=== PATIENT | male | born 1975 | race African-American/Black ===

== ENCOUNTER → 2019-03-27 14:59 | Outpatient (CLI) | payer OTHER, SELFPAY ==
--- NOTE | 2019-03-27 15:20 | RAD_ITS ---
STUDY: X-RAY - PELVIS AND RIGHT HIP REASON FOR EXAM: Male, 43 years old. Right hip pain. TECHNIQUE: 3 views of the pelvis and hip. COMPARISON: None. FINDINGS: There is a non-specific bowel gas pattern. Normal visualized soft tissue structures. Normal bilateral iliac wings, sacroiliac joints and visualized sacrum. Normal bilateral superior and inferior pubic rami. Normal pubic symphysis. Normal bilateral ischial tuberosities. Normal visualized femoral head. Normal acetabulum. Normal hip joint. RAD/HIP, UNI W/ Pelvis 2-3 Views IMPRESSION: Normal x-ray examination of the pelvis and hip. Electronically Signed: Randall Jiménez MD at 16:14 EDT , Service support ,
--- NOTE | 2019-03-27 15:20 | RAD_ITS ---
STUDY: X-RAY - LUMBAR SPINE REASON FOR EXAM: Male, 43 years old. Back pain. TECHNIQUE: 5 view(s) of the lumbar spine were obtained. COMPARISON: None FINDINGS: Normal lumbar lordosis. There is no substantial scoliosis. There is a normal alignment of the vertebrae. Normal vertebral bodies and endplates. Normal disc space heights. The soft tissue structures are unremarkable. RAD/L/S Spine Min 4 Views IMPRESSION: No abnormality of the lumbar spine. Electronically Signed: Randall Jiménez MD at 16:29 EDT , Service support ,
== END ==
PROVIDERS: Referring Provider Internal Medicine; Visit Provider Internal Medicine
DX: M25.551 Pain in right hip (principal); M54.16 Radiculopathy, lumbar region
CPT/HCPCS: 72110; 73502

== ENCOUNTER → 2019-04-09 | Outpatient (CLI) | payer OTHER, SELFPAY ==
--- NOTE | 2019-04-09 15:39 | MRI_ITS ---
STUDY: MRI LUMBAR SPINE WITHOUT CONTRAST REASON FOR EXAM: Male, 43 years old. Posttraumatic lumbar radiculopathy TECHNIQUE: Standardized fat and water weighted pulse sequences were obtained in the sagittal and axial planes. COMPARISON: Lumbar spine x-rays on March 27, 2019 FINDINGS: T12-L1: Normal endplates. Normal disc height, hydration and morphology. Normal bilateral facet joints. Normal central canal and bilateral lateral recesses. Normal bilateral intervertebral neural foramina. Normal lumbar lordosis. There is no substantial scoliosis. Normal conus medullaris that terminates at the L1-2: Normal endplates. Normal disc height, hydration and morphology. Normal bilateral facet joints. Normal central canal and bilateral lateral recesses. Normal bilateral intervertebral neural foramina. L2-3: Normal endplates. Normal disc height, hydration and morphology. Normal bilateral facet joints. Normal central canal and bilateral lateral recesses. Normal bilateral intervertebral neural foramina. L3-4: Normal endplates. Normal disc height, hydration and morphology. Normal bilateral facet joints. Normal central canal and bilateral lateral recesses. Normal bilateral intervertebral neural foramina. L4-5: Normal endplates. Normal disc height, hydration and morphology. Normal bilateral facet joints. Normal central canal and bilateral lateral recesses. Normal bilateral intervertebral neural foramina. L5-S1: Normal endplates. Normal disc height, desiccation and minor annular bulge with tiny central annular tear and disc protrusion.. Mild facet arthropathy. Normal central canal and bilateral lateral recesses. Minor bilateral neural foraminal encroachment Normal visualized sacral ala. Normal visualized paraspinous soft tissue structures. MRI/Spine Lumbar (Routine) IMPRESSION: No evidence for acute fracture or other significant bony pathology. Degenerative disc at L5-S1 demonstrating minor annular bulge and tiny central disc protrusion with mild facet arthropathy creating mild bilateral neural foraminal encroachment Electronically Signed: Moe Ferrara MD at 18:01 EDT , Service support ,
== END | disposition home or self-care (01) ==
PROVIDERS: Family Provider Internal Medicine; PCP Internal Medicine; Referring Provider Internal Medicine; Visit Provider Internal Medicine
DX: M54.16 Radiculopathy, lumbar region (principal)
CPT/HCPCS: 72148

== ENCOUNTER 2019-07-16 05:50 | Day surgery (SDC) | payer OTHER, SELFPAY ==
[2019-07-05 08:07] VITALS: BMI 45.6
[2019-07-16] VITALS (12 sets, daily range): BP systolic 81–137; BP diastolic 32–95; PULSE 54–94; RESP 16–18; TEMP 36.5–36.6; O2SAT 92–98; BMI 43.8
[2019-07-16] MEDS: Lactated Ringers 1,000 ML 100 ML IV (06:38)
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
--- NOTE | 2019-07-16 07:29 | OP.ENDO_ITS ---
07/16/2019 Danita Tim Re : Colonoscopy procedure for Carlin Tim This procedure was performed on Tuesday, July 16, 2019. My impressions and recommendations are as follows: Impressions : - Non-bleeding internal hemorrhoids. If further bleeding were to develop he would benefit from Anusol HC suppositories which can be made at [facility] outpatient pharmacy. - The examination was otherwise normal. - No specimens collected. Recommendations : - Discharge patient to home. - Resume previous diet. - Continue present medications. - Repeat colonoscopy in 10 years for screening purposes. - Return to primary care physician (date not yet determined). My findings are described in the full procedure note, which is enclosed. If I can be of further assistance, please feel free to contact me at Doctor phone number(s): , Fax: [phone], Work: . Sincerely, MD Sven Lewis MD 07/16/2019 7:29:11 AM This report has been signed electronically.
[2019-07-16] MEDS: Lactated Ringers 1,000 ML 999 ML IV (07:46)
== END 2019-07-16 08:39 | disposition home or self-care (01) ==
LOC: EN 05:50 → AC 05:51
PROVIDERS: Family Provider Internal Medicine; PCP Internal Medicine; Referring Provider Internal Medicine; Visit Provider Surgery
PROC: 0DJD8ZZ Inspection of Lower Intestinal Tract, Via Natural or Artificial Opening Endoscopic (ICD-10-PCS; CPT 45378; principal; 2019-07-16 06:55)
DX: K62.5 Hemorrhage of anus and rectum (principal); K64.8 Other hemorrhoids; Z80.0 Family history of malignant neoplasm of digestive organs
CPT/HCPCS: 45378; J7120; J1610

== ENCOUNTER 2019-08-22 13:00 | Outpatient (RCR) | payer OTHER, SELFPAY ==
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
--- NOTE | 2019-09-18 13:41 | HP.PTDCSUM_ITS ---
HP - PT D/C Summary It has been my pleasure to treat RAVI FONSECA under orders from Danita Tim DO, for the diagnosis of LUMBAR RADICULOPATHY for a total of 25 visit(s). Discharge Date: Please see the following information for a summary of their discharge status. - Subjective Subjective: Patient reporting feeling better .overall. 85% better ,certain activities increase symptosm in LB - Pain Left Back Pain Intensity (Out of 10): 2 - Overall Improvement % Improvement: 85 - Objective Objective/Function: POSTURE : WFL. GAIT: reciprocal pattern. MMT: BLE QUAD S/HAMS/HIP/ANKLE 03/11. LUMBAR ROM: flexion min loss,extension min loss,side glides min loss - Goals Goal 1:: Patient to be Independant with HEP Goal Progress: Progressing Goal 2:: Independant with posture/body mechanics . Goal Progress: Progressing Goal 3:: Patient decrease by 50% or greater to improve function. Goal 4:: Patient to improve function of recovery Goal Progress: Progressing Goal 5:: Patient to improve back owestry score by 5-10 points to improve QOL. Goal Progress: Progressing - Plan Plan: RTD - D/C Information If there are questions or concerns regarding this patient's physical therapy, please feel free to call me at [phone]. Thank you for the referral of this patient. Sincerely, Graham Wade, PT, Cert MDT, OCS
== END 2019-08-22 19:00 | disposition home or self-care (01) ==
LOC: PT 13:00
PROVIDERS: Family Provider Internal Medicine; PCP Internal Medicine; Referring Provider Internal Medicine; Visit Provider Internal Medicine
DX: M54.16 Radiculopathy, lumbar region (principal)
CPT/HCPCS: 97014; 97032; 97110; 97140; 97161; 97530; G0283

== ENCOUNTER → 2019-08-29 14:58 | Outpatient (CLI) | payer OTHER, SELFPAY ==
[2019-07-16 06:19] VITALS: BMI 43.8
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
== END ==
PROVIDERS: Family Provider Internal Medicine; PCP Internal Medicine; Referring Provider Internal Medicine; Visit Provider Internal Medicine
DX: M54.16 Radiculopathy, lumbar region (principal)
CPT/HCPCS: 72110

== ENCOUNTER → 2021-08-12 16:16 | Outpatient (CLI) | payer OTHER, SELFPAY ==
--- NOTE | 2021-08-12 16:19 | RAD_ITS ---
STUDY: X-RAY - LEFT FOOT CLINICAL: Male, 46 years old. Nontraumatic heel pain for 2 months. TECHNIQUE: 3 view(s) of the foot. COMPARISON: None. FINDINGS: Normal talus, calcaneus, and tarsal bones. Normal visualized subtalar, talonavicular, calcaneocuboid, tarsal and tarsometatarsal articulations. Normal metatarsi. Normal metatarsophalangeal joint of the great toe. Normal tibial and fibular sesamoid bones. Normal interphalangeal joint of the great toe. Normal phalanges of the great toe. Normal second through fifth metatarsophalangeal joints. Normal interphalangeal joints and phalanges of the lesser toes. The soft tissue structures are unremarkable. RAD/Foot min 3 Views IMPRESSION: Normal x-ray examination of the foot. Electronically Signed: Moncho York DO at 16:57 EDT Tel [phone], Service support ,
--- NOTE | 2021-08-12 16:19 | RAD_ITS ---
STUDY: X-RAY CHEST REASON FOR EXAM: Male, 46 years old. Cough. TECHNIQUE: PA and lateral views of the chest. COMPARISON: None. FINDINGS: The lungs are well-expanded. There is mild coarsening of the interstitial markings most likely chronic although mild acute infiltrate cannot be completely ruled out There is no demonstrated pleural abnormality. Normal size heart. Normal mediastinum and freddie. Normal visualized pulmonary arteries. Normal visualized aortic arch and descending thoracic aorta. Normal visualized thoracic spine. Normal visualized ribs, clavicles, and shoulders. There is no demonstrated abnormality of the visualized soft tissue structures of the upper abdomen. RAD/Chest PA and Lateral IMPRESSION: Interstitial prominence throughout lungs. This is thought to be colonic. Electronically Signed: Moncho York DO at 16:58 EDT Tel [phone], Service support ,
== END ==
PROVIDERS: PCP Internal Medicine; Referring Provider Internal Medicine; Visit Provider Internal Medicine
DX: R05.3 Chronic cough (principal); M79.672 Pain in left foot
CPT/HCPCS: 71046; 73630

== ENCOUNTER → 2021-08-28 06:45 | Outpatient (CLI) | payer OTHER, SELFPAY ==
--- NOTE | 2021-08-28 06:53 | CT_ITS ---
STUDY: CT CHEST WITHOUT CONTRAST REASON FOR EXAM: Male, 46 years old. ABNORMAL CHEST XRAY RADIATION DOSAGE (If Supplied By Facility): CTDIvol = ( 34.45 ) mGy, DLP = ( 1285.42 ) mGycm TECHNIQUE: Transaxial imaging was performed without the administration of intravenous contrast material. Multiplanar coronal and sagittal images were reformatted. Individualized dose optimization techniques were used for this CT. COMPARISON: Comparison is made with prior chest radiograph dated 08/12/2021. FINDINGS: Small benign-appearing bilateral axillary lymph nodes. The lungs are normal. There is no demonstrated pleural abnormality. Normal heart and pericardium. Normal mediastinum. Normal hilar regions. Normal unenhanced pulmonary arteries. Normal aorta arch and descending thoracic aorta. Normal osseous structures. Diffuse fatty infiltration of the liver. CT/Chest without Contrast IMPRESSION: Diffuse fatty infiltration of the liver. The lungs are clear. Electronically Signed: Jake Reynoso MD at 10:22 EDT , Service support ,
== END ==
PROVIDERS: PCP Internal Medicine; Referring Provider Internal Medicine; Visit Provider Internal Medicine
DX: R93.89 Abnormal findings on diagnostic imaging of other specified body structures (principal)
CPT/HCPCS: 71250

== ENCOUNTER 2021-12-09 09:30 | Outpatient (CLI) | payer OTHER, SELFPAY ==
--- NOTE | 2021-12-09 19:12 | STRESSREP ---
Stress Test Report Exercise stress test. 46-year-old man with a history of chest pain. Stress protocol: Resting EKG demonstrates normal sinus rhythm with a rate of 93 bpm normal intervals are noted resting blood pressure is 144/82 mmHg. Patient exercised for total duration of 4 minutes and 15 seconds. The maximum heart rate attained was 144 bpm which was 82% of max impact at heart rate the maximum workload was 7 metabolic equivalents. At rest there were no ST or T wave changes noted suggest ischemia and at peak exercise upsloping ST changes were noted to suggest ischemia. No clinical angina was noted. The resting blood pressure was 144/82 with a peak blood pressure of 210/100. No arrhythmias were noted no chest pain was noted. The test was terminated due to dyspnea. Conclusion: Stress test with no EKG criteria for ischemia at a moderate workload.
== END 2021-12-09 23:59 | disposition short-term general hospital (02) ==
LOC: CVS 09:33
PROVIDERS: PCP Internal Medicine; Referring Provider Internal Medicine; Visit Provider Internal Medicine
DX: R07.9 Chest pain, unspecified (principal)
CPT/HCPCS: 93017

== ENCOUNTER 2023-03-23 10:26 | Day surgery (SDC) | payer OTHER, SELFPAY ==
[2023-03-23] VITALS (15 sets, daily range): BP systolic 140–185; BP diastolic 93–134; PULSE 85–95; RESP 14–19; TEMP 36.1–36.5; O2SAT 92–97; BMI 50.7
[2023-03-23] MEDS: Lactated Ringers 1,000 ML 15 ML IV (10:40)
[2023-03-23] MEDS: Lidocaine 1%/Epi 1:200 (30ml) 30 ML AMPUL (13:25)
[2023-03-23] MEDS: Bupivacaine Mpf 0.5% 30 ML VIAL (13:25)
--- NOTE | 2023-03-23 13:48 | DCINST_ITS ---
Discharge Instructions Follow Up Care Test Results: Test results from this visit will be discussed in further detail at your follow- up appointment, if applicable. Discharge Plan Admission Primary Reason for Your Visit: Left Triceps Repair Attending Provider: Sincere Melgoza Primary Care Provider: Hilda Walker Instructions Additional Instructions / Restrictions: Follow preprinted instructions from your surgeons office. Discharge Orders/Prescriptions Prescriptions: New oxycodone 5 mg tablet 5 mg PO Q6H PRN (Reason: pain) 7 Days Qty: 28 0RF Continued atorvastatin 20 mg Tablet 20 mg PO QHS hydrocodone-acetaminophen 5-325 mg Tablet 1 tab PO Q4H PRN (Reason: Pain) meloxicam 15 mg Tablet 15 mg PO DAILY pantoprazole 40 mg Tablet,Delayed Release (Dr/Ec) 40 mg PO DAILY fluticasone propionate 50 mcg/actuation [place],Suspension 1 spray INTRANASAL DAILY Rx Instructions: administer into each nostril Referrals / Follow Up: Hilda Walker DO [Primary Care Provider] - Sincere Melgoza DO [Med Staff - Active Staff] - Disposition Disposition (needs filled in before D/C Order can be placed): Home, Self Care
[2023-03-23] MEDS: Sugammadex Sodium 200 MG/2 ML VIAL IV (14:05)
[2023-03-23] MEDS: Ketorolac 30 MG/ML Syringe IV (15:00)
--- NOTE | 2023-03-23 15:21 | SUR.PHASEI ---
expresed to pt that I know he is in pain however the pain meds are affecting is respiratory status therefore at this time I can not give him any more iv narcotics. discussed situation with Dr. Gonzalez and he gave order for ativan and continue to monitor bp q5-10 mins. possibly will give hydralazine if does not improve.
--- NOTE | 2023-03-23 17:18 | OP.PCM_ITS ---
Report of Operation Date of Procedure: 03/23/23
--- NOTE | 2023-03-23 17:18 | PCM.OPRPT ---
Report of Operation Date of Procedure: 03/23/23 Description of Surgical Findings:: Preoperative diagnosis: Left distal triceps tendon avulsion Postoperative diagnosis: Left distal triceps tendon avulsion Procedure: Left distal triceps tendon repair Surgeon: Sincere Melgoza DO Labor Arbitrator: Chelsea Key PA-C Anesthesia: General endotracheal Anesthesiologist: Dr. Gonzalez Complications: None apparent Drains: None Estimated blood loss: 30 cc Urinary output: None IV fluids: 400 cc crystalloid Specimens: None Surgical implants: Arthrex 4.75 mm x 18 mm bio composite swivel lock anchor Surgical indications: This is a 47-year-old male who sustained a left elbow injury when he was getting into his truck approximately 4 to 5 weeks ago. He was seen in the outpatient setting. Patient had significant weakness and palpable defect in his triceps tendon. MRI was obtained demonstrated full-thickness retracted triceps tendon avulsion. I saw the patient in the office. I recommend surgical intervention in the form of left distal triceps tendon repair. The risks, benefits, terms the procedure reviewed with the patient at length and he agreed to proceed. Risk included but were not limited to bleeding, infection, loss of life or limb, need for additional surgery, persistent pain, nonhealing tendon or wounds, neurovascular injury, stiffness, persistent weakness. Patient expressed understanding of these risks and wished to proceed with surgery. Description of procedure: Patient was seen in preoperative holding area. He was identified by name, medical record number, date of . The operative extremity was marked with a surgical marker. We confirmed informed consent with the patient and all questions were answered to her satisfaction. Anesthesia consent was also obtained by the anesthesia team prior to procedure. At time of his procedure, patient was brought to the operative suite and positioned supine on a standard operating table. 3 g Ancef was administered room time. General anesthesia was induced and endotracheal tube placed. All bony prominences well-padded. Patient was positioned in lateral decubitus position with the left side up. An axillary roll was placed. Fibular head was free on the down leg. All bony prominences were well-padded in the lateral decubitus position. We positioned the patient in the lateral decubitus position utilizing Vivek med hip positioners. The operative extremity was brought over a radiolucent post. A well-padded pneumatic tourniquet was applied to left upper arm. We then prepped and draped the left upper extremity in normal, sterile orthopedic fashion after spending the bed 90 degrees. We performed a timeout with all parties in attendance in agreement with the side, site, operation to be performed. No concerns were voiced elected proceed with surgery. I first examined the left upper extremity Esmarch bandage. Tourniquet was inflated to 250 mmHg remained up for approximately 40 minutes. I then planned a curvilinear incision over the olecranon curving slightly radial. Skin and subcutaneous tissue was sharply dissected with a 10 blade scalpel. Fluid was encountered after the bursal sac was entered. Fluid was serosanguineous consistent with bursitis. I then split the deep layer of the bursa. Footprint fibers remained on the insertion of the triceps tendon. The triceps tendon had not retracted significantly and was easily identifiable. Minimal adhesions had formed and were able to be freed with blunt dissection. I then debrided the footprint with a combination of rongeur, curette and rasp. I then placed 2 running, locking Krak?w sutures through the distal triceps tendon with #2 FiberWire. Fiber link sutures were placed medially and laterally to achieve double row type repair. 2 bone tunnels were drilled from the proximalmost footprint through the dorsal cortex of the ulna. A Meine Spielzeugkiste suture passer was used to pass the sutures through the respective tunnels. A single limb from each were passed through the fiber link suture to achieve double row type repair. The elbow was then brought to approximately 45 degrees of extension. Sutures were tensioned. I drilled for a swivel lock anchor centrally between the 2 bone tunnels. Drill hole was tapped for the swivel lock anchor. Sutures were tensioned after they were passed through the eyelet of the swivel lock anchor. This achieved excellent compression and reduction of the distal triceps tendon. Swivel lock was then passed through its air force pilot hole with excellent cortical fixation. Sutures were then cut flush with the anchor. The elbow was taken through range of motion. I was able to flex the elbow to approximately 100 degrees without undue tension on the repair. Medial and lateral margins were reattached to adjacent structures with #0 Vicryl suture. Tourniquet was deflated. Wound was then copiously irrigated normal saline solution. I anesthetized the skin flaps and surrounding tissues with 30 cc 1% lidocaine with epinephrine 1: 100,000 to assist with hemostasis. Hemostasis was excellent. 0 Vicryl was used to reapproximate the bursal layer in [id number] fashion. Dermis was reapproximated with 3-0 Vicryl suture. Skin was finally reapproximated with horizontal mattress 4-0 subcuticular Monocryl suture and Dermabond. Sterile compression dressing was then applied after the limb was cleansed. A well-padded posterior elbow fiberglass splint was then applied with the wrist free in 50 degrees of elbow flexion. Patient was then repositioned in the supine position. He was safely extubated in the operative suite and transferred to his gurney and subsequently to PACU in stable condition. Need for skilled assistant at surgery: Chelsea Key PA-C was critical to the outcome of the case. During the course of the procedure the physician assistant at surgery played a vital role. Her intimate knowledge of my steps in the procedure aided in safe and expedient completion of the procedure. The PA played a vital role in positioning particularly in obtaining the appropriate positioning. The PA was also vital in the retraction of soft tissues during the exposure and protecting vital structures, tendon reduction and hardware placement. She also played a vital role in closure and splint application with my direct supervision. Post Operative Plan: Weightbearing: Nonweightbearing operative extremity Antibiotics: Ancef 3 g x 1 dose preoperatively DVT Prophylaxis: Early ambulation, aspirin 81 mg twice daily till follow-up in 2 weeks Owens: None Dressing: Maintain splint until follow-up keep in a clean, dry and intact. X-Rays: None Pain Medication: Oxycodone prescription provided Follow-up: 2 week post-operatively with me in the office for wound check, likely transition to hinged elbow brace and initiation of physical therapy.
== END 2023-03-23 17:51 | disposition home or self-care (01) ==
LOC: SDC 10:26 → AC 10:27
PROVIDERS: Referring Provider Student in an Organized Health Care Education/Training Program; Visit Provider Student in an Organized Health Care Education/Training Program
PROC: (CPT 24341; principal; 2023-03-23 11:45)
DX: S46.312A Strain of muscle, fascia and tendon of triceps, left arm, initial encounter (principal); Z68.43 Body mass index [BMI] 50.0-59.9, adult; X58.XXXA Exposure to other specified factors, initial encounter; Y93.89 Activity, other specified; Y92.812 Truck as the place of occurrence of the external cause; E66.9 Obesity, unspecified; R03.0 Elevated blood-pressure reading, without diagnosis of hypertension; Z71.3 Dietary counseling and surveillance
CPT/HCPCS: 24342; 01710; C1713; J7120; J2405